=== PATIENT | male | born 1960 | race Caucasian/White ===

== ENCOUNTER 2019-07-17 03:10 | Emergency (ER) | payer BC ==
--- NOTE | 2019-07-17 03:17 | PDOC ---
History of Present Illness - General Stated Complaint: PAIN,LT KNEE Time Seen by Provider: 07/17/19 03:17 Past History - Past Medical History Allergies/Adverse Reactions: Allergies Allergy/AdvReac Type Severity Reaction Status Date / Time No Known Allergies Allergy Verified 07/17/19 03:34 Home Medications: Ambulatory Orders Clonazepam 0.5 mg PO DAILY 07/17/19 Escitalopram Oxalate [Lexapro -] 20 mg PO DAILY 07/17/19 Gabapentin 400 mg PO DAILY 07/17/19 Naproxen [Naprosyn -] 500 mg PO BID #14 tablet 07/17/19 Quetiapine Fumarate [Seroquel -] 25 mg PO HS 07/17/19 Medical Decision Making - Medical Decision Making HPI: 59yo M with PMH of depression and anxiety presenting with worsening left knee pain x 1 month. He presents today because his pain has worsened to the point where he can hardly walk. Denies any trauma, fall, or prior injury to the knee. Never followed with an orthopedist. The medial aspect of his knee has pain that worsens any time it moves. He has taken one tablet of motrin every four hours which used alleviate his pain sufficiently. 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 He states he has started to have pain in his right knee as well. No fevers, chills, chest pain, or shortness of breath. ROS: Constitutional: no fever, no chills HEENT: no throat pain, no dysphagia Cardiovascular: no chest pain, no palpitations Respiratory: no cough, no shortness of breath Gastrointestinal: no abdominal pain, no nausea Genitourinary: no dysuria, no hematuria Musculoskeletal: +L. knee pain, +R. knee pain Skin: no rash, no itching Neurologic: no headache, no weakness PE: General: Awake, alert, and fully oriented, in no acute distress Head: No signs of trauma Eyes: EOMI, sclera anicteric ENT: Moist mucus membranes Neck: Normal ROM, supple Lungs: Lungs clear, Normal breath sounds Cardio: Regular rhythm, S1 and S2 present Abdomen: Soft, nontender Extremities: Normal range of motion, Distal pulses present L. knee: tenderness to palpation in medial aspect, no erythema/edema/effusion, 5 /5 strength, 2+ patellar reflex, normal sensation R. knee: tenderness to palpation in medial aspect, no erythema/edema/effusion, 5 /5 strength, 2+ patellar reflex, normal sensation SKIN: Warm, Dry, normal turgor Neurologic: Cranial nerves II through XII grossly intact. Normal speech ED Course/MDM: DDX including but not limited to osteoarthritis, ligamentous tear, meniscal injury, patellofemoral syndrome Radiographs Toradol Orthopedic referral 07/17/19 03:17 Ana states he feels better after receiving toradol Naprosyn sent to pharmacy I have low suspicion for septic arthritis as I did not appreciate erythema/ swelling/warmth in the knee. Knee likely with arthritic changes. He reports limping and may be over-compensating with his other leg. Orthopedic referral Discharged with return precautions Discharge - Discharge Information Problems reviewed: Yes Clinical Impression/Diagnosis: Knee pain Qualifiers: Chronicity: unspecified Laterality: bilateral Qualified Code(s): M25.561 - Pain in right knee Condition: Stable Disposition: HOME - Additional Discharge Information Prescriptions: Naproxen [Naprosyn -] 500 mg PO BID #14 tablet - Follow up/Referral Referrals: Fercho Dawson MD [Staff Physician] - - Patient Discharge Instructions Patient Printed Discharge Instructions: DI for Knee Pain Additional Instructions: You came into the emergency department for knee pain. We took x-rays which did not show acute pathology. Prescription sent to your pharmacy. Prescription sent to your pharmacy. Do not take motrin/ibuprofen/advil while you are taking this medicine. You can also take [id number] tylenol for pain. Follow the instructions on the medication bottle. We have referred you to an orthopedist. Call today and make an appointment to further evaluate your knee. Your workup is not complete until you do so. Immediate medical attention is required if you experience: any focal numbness or weakness, coldness in your limb, or any new or concerning symptoms. If you think you are having an emergency, call for emergency medical services or present to the emergency department right away. - Post Discharge Activity Work/Back to School Note: Back to Work
--- NOTE | 2019-07-17 03:36 | PDOC ---
Attending Attestation - Resident Resident Name: LyudmilaCinda - ED Attending Attestation I have performed the following: I have examined & evaluated the patient, The case was reviewed & discussed with the resident, I agree w/resident's findings & plan, Exceptions are as noted - HPI HPI: 07/17/19 03:36 59y M hx of depression/anxiety presenst with 1 month of atraumatic L knee pain. Has not had it evaluated before, notes pain is worse in the medial knee that worsens when he walks/moves. denies any swelling, redness, numbness/tingling/ weakness. pt also endorses his right now started to hurt recently as well. pt taking motrin at home with some relief of pain. Physical Exam: General: no acute distress, well appearing ext: no edema, no focal bony tenderness, no limitations of active or passive ROM of b/l knee, no calf tenderness, no erythema or swelling suspect arthritis vs overuse supportive care nsaids will obtain xray will dc to fu with pmd - Physicial Exam PE: 07/17/19 04:38 see above - Medical Decision Making 07/17/19 04:38 see above
[2019-07-17 03:37] VITALS: BP 124/72; PULSE 72; TEMP 98.8; BMI 33.3
[2019-07-17] MEDS ORDERED: KETOROLAC TROMETHAMINE 30 MG/1 ML VIAL IM ONE (03:39)
[2019-07-17] MEDS ORDERED: KETOROLAC TROMETHAMINE 30 MG/1 ML VIAL ONE (03:49)
== END 2019-07-17 04:57 | disposition home or self-care (01) ==
LOC: JER 03:10
PROC: 3E0233Z Introduction of Anti-inflammatory into Muscle, Percutaneous Approach (ICD-10-PCS; principal; 2019-07-17)
DX: M25.561 Pain in right knee (principal); F41.8 Other specified anxiety disorders
CPT/HCPCS: 73562-TC-LT-FY; 73562-TC-RT-FY; 99282-25

== ENCOUNTER 2021-06-08 10:27 | Day surgery (SDC) | payer BC ==
[2021-06-06 08:41] VITALS: BMI 41.7
[2021-06-08] MEDS ORDERED: BUPIVACAINE HCL/PF 0.25% (2.5MG/ML) 10 ML VIAL ONE (12:31)
[2021-06-08] MEDS ORDERED: BUPIVACAINE HCL 100 ML ONE (12:31)
[2021-06-08] MEDS ORDERED: LIDOCAINE HCL/PF 2% SDV 5ML VIAL ONE (12:45)
[2021-06-08] MEDS ORDERED: ceFAZolin SODIUM 1 GM VIAL ONE ×2 (12:45→13:04)
[2021-06-08] MEDS ORDERED: DEXAMETHASONE SOD PHOSPHATE 4 MG/1 ML VIAL ONE ×2 (12:45→13:04)
[2021-06-08] MEDS ORDERED: KETOROLAC TROMETHAMINE 30 MG/1 ML VIAL ONE ×2 (12:45→13:04)
[2021-06-08] MEDS ORDERED: ONDANSETRON 4 MG/2 ML VIAL ONE ×2 (12:45→13:04)
[2021-06-08] MEDS ORDERED: PROPOFOL 20 ML ONE ×2 (12:46)
[2021-06-08] MEDS ORDERED: MIDAZOLAM HCL 2 MG/2 ML SINGLE DOSE VIAL ONE (12:46)
[2021-06-08] MEDS ORDERED: LIDOCAINE HCL 2% JELLY (5 ML/TUBE) ONE (12:47)
[2021-06-08] MEDS ORDERED: BUPIVACAINE HCL 0.5% 250 MG/50 ML VIAL NR ONE (13:38)
[2021-06-08] MEDS ORDERED: PROMETHAZINE HCL 25 MG/1 ML VIAL IVPUSH PRN (13:51)
[2021-06-08] MEDS ORDERED: oxyCODONE HCL 5 MG TABLET PO PRN ×2 (13:51)
[2021-06-08] MEDS ORDERED: ONDANSETRON 4 MG/2 ML VIAL IVPUSH PRN (13:51)
[2021-06-08 15:22] VITALS: BP 120/65; PULSE 66; TEMP 97.9
== END 2021-06-08 15:22 | disposition home or self-care (01) ==
LOC: FASU 10:27
PROVIDERS: ATTEND Orthopaedic Surgery
PROC: 0SBD4ZZ Excision of Left Knee Joint, Percutaneous Endoscopic Approach (ICD-10-PCS; 2021-06-08)
PROC: 0SBD4ZZ Excision of Left Knee Joint, Percutaneous Endoscopic Approach (ICD-10-PCS; 2021-06-08)
PROC: 0SBD4ZZ Excision of Left Knee Joint, Percutaneous Endoscopic Approach (ICD-10-PCS; principal; 2021-06-08 13:13)
DX: S83.242A Other tear of medial meniscus, current injury, left knee, initial encounter (principal); S83.282A Other tear of lateral meniscus, current injury, left knee, initial encounter; M25.562 Pain in left knee; M17.12 Unilateral primary osteoarthritis, left knee; M67.52 Plica syndrome, left knee; M65.9 Synovitis and tenosynovitis, unspecified; X58.XXXA Exposure to other specified factors, initial encounter; Y93.9 Activity, unspecified; Y92.9 Unspecified place or not applicable
CPT/HCPCS: 29880; G0289; 94760

== ENCOUNTER 2022-01-10 04:20 | Day surgery (SDC) | payer BC ==
[2022-01-08 13:53] VITALS: BMI 39.9
[~2022-01-10 04:20] MED LIST: BUPIVACAINE HCL/PF 0.5% (5MG/ML) 10 ML VIAL IJ ONE
[2022-01-10] MEDS ORDERED: BUPIVACAINE HCL/PF 0.5% (5MG/ML) 10 ML VIAL ONE (09:12)
[2022-01-10] MEDS ORDERED: BUPIVACAINE HCL/PF 0.5% (5MG/ML) 10 ML VIAL IJ ONE ×2 (09:56→10:27)
[2022-01-10 13:03] VITALS: BP 128/76; PULSE 78; TEMP 98
== END 2022-01-10 12:30 | disposition home or self-care (01) ==
LOC: JASU-SURG 04:20
PROVIDERS: ATTEND Orthopaedic Surgery
PROC: 0SBD4ZZ Excision of Left Knee Joint, Percutaneous Endoscopic Approach (ICD-10-PCS; 2022-01-10)
PROC: 0SBD4ZZ Excision of Left Knee Joint, Percutaneous Endoscopic Approach (ICD-10-PCS; principal; 2022-01-10 09:00)
DX: S83.242A Other tear of medial meniscus, current injury, left knee, initial encounter (principal); M17.12 Unilateral primary osteoarthritis, left knee; M65.862 Other synovitis and tenosynovitis, left lower leg; X58.XXXA Exposure to other specified factors, initial encounter; Y93.9 Activity, unspecified; Y92.9 Unspecified place or not applicable
CPT/HCPCS: 94760